=== PATIENT | female | born 1975 | race Caucasian/White ===

== ENCOUNTER 2022-05-20 18:07 | Emergency (ER) | payer OTHER, SELFPAY ==
[2022-05-20 18:20] VITALS: BP 123/65; PULSE 88; RESP 16; TEMP 36.4; O2SAT 97
[2022-05-20 18:32] VITALS: BP 123/65; PULSE 88; RESP 16; TEMP 36.4; O2SAT 97
--- NOTE | 2022-05-20 19:04 | ED.EYEPROB ---
HPI - Eye Problem General Chief complaint: Eye Problems Stated complaint: Eye Problem Time Seen by Provider: 05/20/22 18:20 Source: patient, family, RN notes reviewed and old records reviewed Mode of arrival: ambulatory Limitations: no limitations History of Present Illness HPI Narrative: 47 year old female presents to [facility] accompanied by spouse with complaints of awakening this morning with right eye red and with crusting on lashes.She states she thought she had a foreign body in her so son dug in her eye with his finger and then flushed her eye well. Patient reports that her eye is now painful. Patient denies sharp pain in her eye or any change in her vision MD chief complaint: eye pain and eye redness Onset (ago): day(s) (this morning) Severity scale (1-10): 4 Treatments Prior to Arrival: irrigated eye Related Data Home Medications Medication Instructions Recorded Confirmed adalimumab 40 mg/0.8 mL 0 mg subcut .COMPLEX 05/20/22 05/20/22 subcutaneous pen kit (Humira Pen) dulaglutide 4.5 mg/0.5 mL 4.5 mg subcut WEEKLY 05/20/22 05/20/22 subcutaneous pen injector (Trulicity) empagliflozin 25 mg tablet 25 mg PO DAILY 05/20/22 05/20/22 (Jardiance) fexofenadine 180 mg tablet 180 mg PO DAILY 05/20/22 05/20/22 levothyroxine 137 mcg tablet 137 mcg PO DAILY 05/20/22 05/20/22 lisinopril 2.5 mg tablet 2.5 mg PO DAILY 05/20/22 05/20/22 meloxicam 15 mg tablet 15 mg PO DAILY 05/20/22 05/20/22 omeprazole 20 mg delayed 20 mg PO DAILY 05/20/22 05/20/22 release,disintegrating tablet oxybutynin chloride 10 mg 10 mg PO DAILY 05/20/22 05/20/22 tablet,extended release 24 hr rosuvastatin 10 mg tablet mg 05/20/22 Allergies Allergy/AdvReac Type Severity Reaction Status Date / Time No Known Allergies Allergy Verified 05/20/22 18:20 Review of Systems Review of Systems: CONSTITUTIONAL: Denies fever, chills, or sweats. EYES: Denies visual changes. Reports redness, irritation, and burning sensation to her right eye, denies any change in her vision ENT: Denies rhinorrhea, congestion, sore throat, or otalgia. CARDIOVASCULAR: Denies chest pain, palpitations, or edema. RESPIRATORY: Denies cough or dyspnea. SKIN: Denies rash or itching. NEUROLOGIC: Denies headache All systems reviewed & are unremarkable except as noted in HPI and below PMFSH Past Medical History Medical History (Updated 05/22/22 @ 20:38 by Maddy Ballard NP) Diabetes Elevated cholesterol Hypertension Rheumatoid arthritis Surgical History Surgical History (Updated 05/22/22 @ 20:23 by Maddy Ballard NP) Hx of cholecystectomy Social History Social History (Updated 05/22/22 @ 20:23 by Maddy Ballard NP) Smoking status: Never smoker Alcohol intake: never Substance use: never Substance use type: does not use Living arrangements: with family Gender identity (if verbalized by the patient): Female Comments At time of signature, agree with nursing past medical, surgical, social and family history. There is no relevant family history pertinent to the presenting complaint Exam Narrative: GENERAL: Well-appearing, well-nourished, and in no acute distress. HEAD: Normocephalic, atraumatic. EYES: PERRLA and EOMI. Upper and lower eyelids unremarkable. No periorbital cellulitis noted. Sclera injected especially to right outer eye region, excessive watering no purulent drainage noted. ENT: Nares clear, no rhinorrhea or epistaxis. Mucous membranes moist. NECK: Supple. no lymphadenopathy CHEST: Clear to auscultation. No respiratory distress.SAO2 97% on room air HEART: Regular rate and rhythm. No murmur heard. Normal peripheral pulses. SKIN: Warm, dry, no rash. NEURO: No focal deficits. Alert and oriented x3. Course Course Emergency Course: Patient is aware of diagnosis, understands and agrees to treatment plan. Anticipatory guidance given. Patient agrees to follow-up as directed and is aware of reasons to seek care at the [facility]
== END 2022-05-20 19:17 | disposition home or self-care (01) ==
PROVIDERS: Emergency Provider Registered Nurse
DX: S05.01XA Injury of conjunctiva and corneal abrasion without foreign body, right eye, initial encounter (principal); T14.90XA Injury, unspecified, initial encounter; E11.9 Type 2 diabetes mellitus without complications; I10 Essential (primary) hypertension; E78.00 Pure hypercholesterolemia, unspecified; M06.9 Rheumatoid arthritis, unspecified
CPT/HCPCS: 99213; A9270; G0463